=== PATIENT | female | born 1965 | race Caucasian/White ===

== ENCOUNTER → 2020-06-11 | Outpatient (CLI) | payer BC ==
[~2020-06-11] MED LIST: ASPI-496 PO; LOSA25TA25 PO
== END | disposition home or self-care (01) ==
LOC: CFH 13:44
PROVIDERS: ATTEND Family Medicine
DX: Z12.31 Encounter for screening mammogram for malignant neoplasm of breast (principal)
CPT/HCPCS: 77067